=== PATIENT | male | born 1990 | race Two or more races ===

== ENCOUNTER 2024-06-10 07:55 | Emergency (ER) | payer SELFPAY ==
[~2024-06-10] VITALS: Ht 180.3 cm; Wt 109.4 kg
[2024-06-10 08:39] LABS: Basophils # (auto) 0 10 ^3/uL (0-0.2); Basophils % (auto) 0.7 % (0.0-2.0); Eosinophils # (auto) 0.2 10 ^3/uL (0-0.8); Eosinophils % (auto) 2.8 % (0.0-7.0); Hematocrit 48.5 % (41.0-53.0); Lymphocytes # (auto) 1.7 10 ^3/uL (0.4-5.4); Lymphocytes % (auto) 23.5 % (10.0-50.0); Mean Corpuscular Hemoglobin 31.6 pg (28.0-32.0); Mean Corpuscular Volume 90.1 fL (80.0-100.0); Monocytes # (auto) 0.4 10 ^3/uL (0-1.3); Monocytes % (auto) 5.3 % (0.0-12.0); Neutrophils # (auto) 4.8 10 ^3/uL (1.6-8.6); Neutrophils % (auto) 67.7 % (37.0-80.0); Nucleated Red Blood Cells % 0.1 %; Platelet Count (auto) 260 10^3/uL (140-450); Red Blood Cells 5.38 10^6/uL (4.5-5.90); Red Cell Distribution Width 13.6 % (11.8-14.3); White Blood Cell 7.1 10^3/uL (4.4-10.8)
[2024-06-10 08:48] LABS: Chloride 104 mmol/L (98-107); Potassium 4.1 mmol/L (3.5-5.1); Sodium 137 mmol/L (136-145)
[2024-06-10 08:49] LABS: Anion Gap 7 (5-15); Carbon Dioxide 26 mmol/L (20-31)
[2024-06-10 08:50] LABS: Calcium 9.5 mg/dL (8.7-10.4)
[2024-06-10 08:54] LABS: Glucose 106 mg/dL (74-106)
[2024-06-10 08:55] VITALS: BP 142/90; PULSE 85; RESP 20; TEMP 99.6; O2SAT 100
[2024-06-10 08:55] LABS: BUN/Creatinine Ratio 7.6 (10.0-20.0); Blood Urea Nitrogen 7 mg/dL (9-23)
--- NOTE | 2024-06-10 09:14 | ED.PDOC ---
GI ASSESSMENT HPI Comments A 34 YEAR OLD MALE PRESENTS TO THE ED WITH COMPLAINT OF EPIGASTRIC PAIN. PATIENT STATES HE HAS BEEN EXPERIENCING EPIGASTRIC PAIN WITH A FEW EPISODES OF NAUSEA AND VOMITING FOR THE PAST 2 DAYS. PATIENT NOTES HE HAS HAD A DECREASED APPETITE A RESULT OF HIS SYMPTOMS. PATIENT DENIES FEVER, CHILLS, SHORTNESS OF BREATH, CHEST PAIN, HEADACHE, OR OTHER COMPLAINTS. NO OTHER SYMPTOMS OR MODIFYING FACTORS AT THIS TIME. PATIENT IS ALERT, ORIENTED X 4, AND HAS STEADY GAIT. Chief Complaint: Abdominal Pain Time Seen by MD: 08:17 Reviewed Notes: Nurses Notes, Medications, Allergies Allergies: Coded Allergies: NO KNOWN ALLERGIES (Unverified , 06/10/24) Information Source: Patient Mode of Arrival: Ambulatory Timing: Days Duration: Since onset, Days Prehospital treatment: None Quality: Aching, Cramping Vomitus: Food Particles Stool: Normal Severity: Moderate Recent: None Recent Hx of: None Pain Location: Epigastric Modifying Factors: Nothing Associated sign and symptoms: Nausea, Vomiting, Abdominal Pain Past Medical History PAST MEDICAL HISTORY: Denies Surgical History: Denies all surgeries Family History Family History: Reviewed,noncontributory to illness Social History Smoker: Non-Smoker Alcohol: Denies ETOH Use Drugs: Denies Drug Use Lives In: Home Constitutional: denies: chills, diaphoresis, fatigue, fever, malaise, sweats, weakness, others EENTM: denies: blurred vision, double vision, ear bleeding, ear discharge, ear drainage, ear pain, ear ringing, eye pain, eye redness, hearing loss, mouth pain, mouth swelling, nasal discharge, nose bleeding, nose congestion, nose pain, photophobia, tearing, throat pain, throat swelling, voice changes, others Respiratory: denies: cough, hemoptysis, orthopnea, SOB at rest, shortness of breath, SOB with excertion, stridor, wheezing, others Cardiovascular: denies: chest pain, dizzy spells, diaphoresis, Dyspnea on exertion, edema, irregular heart beat, left arm pain, lightheadedness, palpitations, PND, syncope, others Gastrointestinal: reports: abdominal pain (EPIGASTRIC PAIN), nausea, vomiting; denies: abdomen distended, blood streaked bowels, constipated, diarrhea, dysphagia, difficulty swallowing, hematemesis, melena, poor appetite, poor fluid intake, rectal bleeding, rectal pain, others Genitourinary: denies: burning, dysuria, flank pain, frequency, hematuria, incontinence, penile discharge, penile sore, pain, testicle pain, testicle swelling, urgency, others Neurological: denies: dizziness, fainting, headache, left sided numbness, left sided weakness, numbness, paresthesia, pre-existing deficit, right sided numbness, right sided weakness, seizure, speech problems, tingling, tremors, weakness, others Musculoskeletal: denies: back pain, gout, joint pain, joint swelling, muscle pain, muscle stiffness, neck pain, others Integumetry: denies: bruises, change in color, change in hair/nails, dryness, laceration, lesions, lumps, rash, wounds, others Allergic/Immunocompromised: denies: Difficulty Healing, Frequent Infections, Hives, Itching, others Hematologic/Lymphatic: denies: anemia, blood clots, easy bleeding, easy bruising, swollen glands, others Endocrine: denies: excessive hunger, excessive sweating, excessive thirst, excessive urination, flushing, intolerance to cold, intolerance to heat, unexplained weight gain, unexplained weight loss, others Psychiatric: denies: anxiety, bipolar disorder, depression, hopeless, panic disorder, schizophrenia, sleepless, suicidal, others All Other Systems: Reviewed and Negative Physical Exam General Appearance: Obese HEENT: Normal ENT Inspection, PERRL/EOMI, Pharynx Normal, TMs Normal Neck: Full Range of Motion, Non-Tender, Normal, Normal Inspection Respiratory: Chest Non-Tender, Lungs Clear, No Accessory Muscle Use, No Respiratory Distress, Normal Breath Sounds Cardiovascular: No Edema, No JVD, No Murmur, No Gallop, Normal Peripheral Pulses, Regular Rate/Rhythm Breast Exam: Deferred Gastrointestinal: Epigastric, No Organomegaly, No Pulsatile Mass, Normal Bowel Sounds, Soft, Tenderness (EPIGASTRIC WITH MILD GUARDING, NO REBOUND TENDERNESS. ) Genitalia: Deferred Pelvic: Deferred Rectal: Deferred Extremities: No calf tenderness, Normal capillary refill, Normal inspection, Normal range of motion, Non-tender, No pedal edema Musculoskeletal : Apperance: Normal Neurologic: Alert, lard refiner II-XII nml as Tested, No Motor Deficits, Normal Affect, Normal Mood, No Sensory Deficits Cerebellar Function: Normal Reflexes: Normal Skin: Dry, Normal Color, Warm Peripheral Pulses: 2+ carotid (R), 2+ carotid (L) Lymphatic: No Adenopathy Was a procedure done? Was a procedure done?: No GI differential Dx Differential Diagnosis: Cholecystitis, Constipation, Gastritis/PUD, Inflammatory BD, Pancreatitis X-Ray, Labs, Meds, VS Vital Signs Date Time Temp Pulse Resp B/P (MAP) Pulse Ox O2 Delivery O2 Flow Rate FiO2 06/10/24 08:55 99.6 85 20 142/90 (107) 100 99.6 06/10/24 08:55 85 20 100 Room Air 06/10/24 08:10 99.6 85 20 142/90 (107) 100 Lab Test 06/10/24 09:50 06/10/24 08:20 Range/Units Urine Color Light-yellow Yellow Urine Clarity Clear Clear Urine pH 7.0 5.0-9.0 Urine Specific [place] 1.016 1.001-1.035 Urine Protein Negative Negative Urine Ketones Negative Negative Urine Blood Negative Negative /uL Urine Nitrite Negative Negative Urine Bilirubin Negative Negative Urine Urobilinogen Normal Negative mg/dL Urine Leukocyte Esterase Negative Negative /uL Urine RBC 2 0 - 3 /hpf Urine WBC 1 0 - 3 /hpf Urine Squamous Epithelial Cells Few <5 /hpf Urine Bacteria None seen None Seen /hpf Urine Mucus Few None Seen Urine Glucose Normal Normal mg/dL White Blood Count 7.1 4.4-10.8 10^3/uL Red Blood Count 5.38 4.5-5.90 10^6/uL Hemoglobin 17.0 13.5-17.5 g/dL Hematocrit 48.5 41.0-53.0 % Mean Corpuscular Volume 90.1 80.0-100.0 fL Mean Corpuscular Hemoglobin 31.6 28.0-32.0 pg Mean Corpuscular Hemoglobin Concent 35.0 32.0-36.0 g/dL Red Cell Distribution Width 13.6 11.8-14.3 % Platelet Count 260 140-450 10^3/uL Mean Platelet Volume 7.7 6.9-10.8 fL Neutrophils (%) (Auto) 67.7 37.0-80.0 % Lymphocytes (%) (Auto) 23.5 10.0-50.0 % Monocytes (%) (Auto) 5.3 0.0-12.0 % Eosinophils (%) (Auto) 2.8 0.0-7.0 % Basophils (%) (Auto) 0.7 0.0-2.0 % Neutrophils # (Auto) 4.8 1.6-8.6 10 ^3/uL Lymphocytes # (Auto) 1.7 0.4-5.4 10 ^3/uL Monocytes # (Auto) 0.4 0-1.3 10 ^3/uL Eosinophils # (Auto) 0.2 0-0.8 10 ^3/uL Basophils # (Auto) 0 0-0.2 10 ^3/uL Nucleated Red Blood Cells 0.1 % Sodium Level 137 136-145 mmol/L Potassium Level 4.1 3.5-5.1 mmol/L Chloride Level 104 98-107 mmol/L Carbon Dioxide Level 26 20-31 mmol/L Anion Gap 7 5-15 Blood Urea Nitrogen 7 L 9-23 mg/dL Creatinine 0.92 0.700-1.30 mg/dL Glomerular Filtration Rate Calc 111 >90 mL/min BUN/Creatinine Ratio 7.6 L 10.0-20.0 Serum Glucose 106 74-106 mg/dL Calcium Level 9.5 8.7-10.4 mg/dL Total Bilirubin 0.8 0.2-1.0 mg/dL Direct Bilirubin < 0.1 <0.3 mg/dL Aspartate Amino Transferase (AST) 16 13-40 U/L Alanine Aminotransferase (ALT) 31 7-40 U/L Alkaline Phosphatase 71 46-116 U/L Total Protein 7.3 5.7-8.2 g/dL Albumin 4.6 3.2-4.8 g/dL Lipase 33 12-53 U/L Current Medications Medications (Trade) Dose Ordered Sig/Sylvain Route Start Time Stop Time Status Last Admin Ketorolac Tromethamine (Toradol Injection) 60 mg ONCE ONCE IM 06/10/24 10:30 06/10/24 10:31 DC 06/10/24 10:39 Procedure: US GALLBLADDER 06/10/2024 09:11 AM Indication: EPIGASTRIC PAIN. Comparison: None Technique: Grayscale and color images of the right upper quadrant were obtained. FINDINGS: ASCITES: None. LIVER: Liver measures 18.8 cm craniocaudal. Liver parenchyma is homogeneous in echotexture. No focal lesion is identified. No intrahepatic ductal dilatation. Normal directional flow is seen in the portal vein. GALLBLADDER: No gallstones. No gallbladder wall edema or pericholecystic fluid. Sonographic Marrero's sign is negative. COMMON BILE DUCT: 0.4 cm in caliber, within normal limits. PANCREAS: A 2.8 x 1.8 x 1.8 cm unilocular anechoic cyst is seen between the pancreatic head and ashleigh hepatis. No pancreatic ductal dilatation noted. RIGHT KIDNEY: Normal in size, 12.3 cm in length without hydronephrosis. No focal lesions identified. AORTA, IVC: Visualized portions are unremarkable. OTHER: None. IMPRESSION: 1. No sonographic evidence for acute abnormality in the right upper quadrant. No cholelithiasis or evidence of cholecystitis. 2. A 2.8 cm unilocular simple appearing cyst between the pancreatic head and ashleigh hepatis that may represent pseudocyst, cystic pancreatic lesion or other etiologies. This should be further evaluated with abdominal CT scan or MRI utilizing a dedicated pancreatic protocol. 3. Hepatomegaly and hepatic steatosis. ATED BY: NANCY HERRING MD DICTATED DATE/TIME: 06/10/24948 SIGNED BY: NANCY HERRING MD SIGNED DATE/TIME: 06/10/24948 CC: CT ABDOMEN AND PELVIS WITHOUT CONTRAST CLINICAL HISTORY: EPIGASTRIC PAIN WITH N/V TECHNIQUE: Multidetector CT of the abdomen was performed from lung bases to pu bic symphysis. Imaging was performed without IV contrast. Axial, coronal and sagittal multiplanar reformats were obtained from the axial data set by the technologist. Radiation optimization: All CT scans at this facility use at least one of these dose optimization techniques: automated exposure control mA and/or kV adjustment per patient size (includes targeted exams where dose is matched to clinical indication) or iterative reconstruction. Radiation Dose Information: CT Dose: CTDI volume is 24.4 mGy. Dose-length product is 1220.37 mGy*cm Comparison: None FINDINGS: Evaluation of the abdominal viscera is limited without intravenous contrast. There is diffuse fatty infiltration of the liver . There is no gross suspicious appearing hepatic lesion. The gallbladder, pancreas, kidneys, adrenal glands, and spleen appear within normal limits. There is no gross evidence of abdominal lymphadenopathy. There is no free fluid or free air. The stomach grossly appears unremarkable. The small and large bowel loops demonstrate normal caliber. There are view scattered diverticula in the colon without evidence of acute diverticulitis. The abdominal aorta and IVC appear within normal limits. The bladder appears unremarkable. Pelvic organ appears unremarkable. There is no evidence of a pelvic mass or lymphadenopathy. There is no free fluid collection. Lung bases are clear. There is no acute osseous abnormality. IMPRESSION: 1. There is no acute process in the abdomen and pelvis.. 2. Hepatic steatosis. 3. Few scattered colonic diverticula. HS:Y ATED BY: DENVER KIM MD DICTATED DATE/TIME: 06/10/24 101 SIGNED BY: DENVER KIM MD SIGNED DATE/TIME: 06/10/241011 CC: X-Ray, Labs, Meds, VS Comment LABS ORDERED: CBC, CMP, LIPASE, UA REVIEWED AND INTERPRETED RESULTS: NORMAL TREATMENT: TORADOL 60 MG IM A 34 YEAR OLD MALE PRESENTED TO THE ED C/O EPIGASTRIC PAIN WITH OCCASIONAL NAUSE A AND VOMITING FOR THE PAST 2 DAYS. UPON MY PHYSICAL EXAMINATION, THE PATIENT HAD NO GUARDING OR REBOUND TENDERNESS NOTED UPON PALPATION TO THEIR ABDOMEN, AND WAS MARRERO'S SIGN NEGATIVE. MY DIFFERENTIAL DIAGNOSIS INCLUDES, GERD, GASTRITIS, BILIARY SLUDGE, CHOLELITHIASIS, CHOLECYSTITIS, PANCREATITIS, HEPATIC STEATOSIS. LABS WERE ORDERED FOR THE PATIENT AND THERE WERE NO ACUTE FINDINGS. AN ULTRASOUND OF THE PATIENT'S ABDOMEN WAS DONE WHICH REVEALED HEPATOMEGALY AND HEPATIC STEATOSIS BUT NO OTHER ACUTE FINDINGS. A CT SCAN OF THE PATIENT'S ABDOMEN AND PELVIS WAS DONE WHICH WAS NORMAL. PATIENT WAS MEDICATED HERE IN THE ED WITH TORADOL 60 MG IM. SINCE THE PATIENT'S LAB TESTS AND IMAGING TESTS ARE NORMAL I HAVE DETERMINED THE PATIENT IS OKAY TO BE DISCHARGED AT THIS TIME. PATIENT WILL BE DISCHARGED HOME AND I HAVE ADVISED THEM TO FOLLOW-UP WITH THE PCP IN 1 TO 2 DAYS AND RETURN TO THE ED FOR ANY NEW OR WORSENING SYMPTOMS. Images Reviewed?: Images reviewed and evaluated by me Time of 1ST Reevaluation: 10:51 Reevaluation 1ST: Improved Patient Education/Counseling: Diagnosis, Treatment, Need For Follow Up Family Education/Counseling: Diagnosis, Treatment, Need For Follow Up Medical Screening: No EMC Exist At This Time Departure 1 Departure Time of Disposition: 11:00 Impression: Primary Impression: Acute gastritis Qualified Codes: K29.00 - Acute gastritis without bleeding Additional Impression: Hepatic steatosis Disposition: HOME / SELF CARE / HOMELESS Condition: Stable Additional Instructions: FOLLOW-UP WITH PCP IN 1 TO 2 DAYS. TAKE MEDICATIONS PRESCRIBED. RETURN TO ED FOR ANY NEW OR WORSENING SYMPTOMS. e-Prescriptions Ondansetron Odt 4MG Tab (ZOFRAN PO) 4 Mg Tb 4 MG PO BID, #14 TAB ODT TAB-DISSOLVE IN MOUTH, THEN SWALLOW Prov: GAGANDEEP ALCARAZ 06/10/24 Pantoprazole Sodium Sesquihydr (Protonix) 40 Mg Tab 40 MG PO DAILY, #30 TAB Prov: GAGANDEEP ALCARAZ 06/10/24 Discharged With: Self Critical Care Note Critical Care Time?: No Stability Stability form required: No I personally scribed for GAGANDEEP ALCARAZ ([email or web address]) on 06/10/24 at 09:14. Electronically submitted by Bipin Aceves ([email or web address]). I personally scribed for GAGANDEEP ALCARAZ ([email or web address]) on 06/10/24 at 09:54. Electronically submitted by Bipin Aceves ([email or web address]). I personally scribed for GAGANDEEP ALCARAZ ([email or web address]) on 06/10/24 at 10:50. Electronically submitted by Bipin Aceves ([email or web address]). GAGANDEEP ALCARAZ Jun 10, 2024 09:14
[2024-06-10 09:38] LABS: Alanine Aminotransferase 31 U/L (7-40); Albumin 4.6 g/dL (3.2-4.8); Alkaline Phosphatase 71 U/L (46-116); Aspartate Aminotransferase 16 U/L (13-40); Bilirubin, Direct < 0.1 mg/dL (<0.3); Bilirubin, Total 0.8 mg/dL (0.2-1.0); Total Protein 7.3 g/dL (5.7-8.2)
--- NOTE | 2024-06-10 09:52 | DVH ---
Procedure: US GALLBLADDER 06/10/2024 09:11 AM Indication: EPIGASTRIC PAIN. Comparison: None Technique: Grayscale and color images of the right upper quadrant were obtained. FINDINGS: ASCITES: None. LIVER: Liver measures 18.8 cm craniocaudal. Liver parenchyma is homogeneous in echotexture. No focal lesion is identified. No intrahepatic ductal dilatation. Normal directional flow is seen in the port al vein. GALLBLADDER: No gallstones. No gallbladder wall edema or pericholecystic fluid. Sonographic Marrero's sign is negative. COMMON BILE DUCT: 0.4 cm in caliber, within normal limits. PANCREAS: A 2.8 x 1.8 x 1.8 cm unilocular anechoic cyst is seen between the pancreatic head and port a hepatis. No pancreatic ductal dilatation noted. RIGHT KIDNEY: Normal in size, 12.3 cm in length without hydronephrosis. No focal lesions identified. AORTA, IVC: Visualized portions are unremarkable. OTHER: None. IMPRESSION: 1. No sonographic evidence for acute abnormality in the right upper quadrant. No cholelithiasis or ev idence of cholecystitis. 2. A 2.8 cm unilocular simple appearing cyst between the pancreatic head and ashleigh hepatis that may r epresent pseudocyst, cystic pancreatic lesion or other etiologies. This should be further evaluated with abdominal CT scan or MRI utilizing a dedicated pancreatic protocol. 3. Hepatomegaly and hepatic steatosis.
--- NOTE | 2024-06-10 10:14 | DVH ---
CT ABDOMEN AND PELVIS WITHOUT CONTRAST CLINICAL HISTORY: EPIGASTRIC PAIN WITH N/V TECHNIQUE: Multidetector CT of the abdomen was performed from lung bases to pubic symphysis. Imaging was performed without IV contrast. Axial, coronal and sagittal multiplanar reformats were obtained fr om the axial data set by the technologist. Radiation optimization: All CT scans at this facility use at least one of these dose optimization delores hniques: automated exposure control mA and/or kV adjustment per patient size (includes targeted exam s where dose is matched to clinical indication) or iterative reconstruction. Radiation Dose Information: CT Dose: CTDI volume is 24.4 mGy. Dose-length product is 1220.37 mGy*cm Comparison: None FINDINGS: Evaluation of the abdominal viscera is limited without intravenous contrast. There is diffuse fatty infiltration of the liver . There is no gross suspicious appearing hepatic le desean. The gallbladder, pancreas, kidneys, adrenal glands, and spleen appear within normal limits. There is no gross evidence of abdominal lymphadenopathy. There is no free fluid or free air. The stomach grossly appears unremarkable. The small and large bowel loops demonstrate normal caliber. There are view scattered diverticula in the colon without evidence of acute diverticulitis. The abdominal aorta and IVC appear within normal limits. The bladder appears unremarkable. Pelvic organ appears unremarkable. There is no evidence of a pelvi c mass or lymphadenopathy. There is no free fluid collection. Lung bases are clear. There is no acute osseous abnormality. IMPRESSION: 1. There is no acute process in the abdomen and pelvis.. 2. Hepatic steatosis. 3. Few scattered colonic diverticula. HS:Y
[2024-06-10 10:32] LABS: Urine Bacteria None Seen /hpf (None Seen)
[2024-06-10 10:39] LABS: Urine Blood Negative /uL (Negative); Urine Clarity Clear (Clear); Urine Color Light-Yellow (Yellow); Urine Mucus FEW (None Seen); Urine Protein, UAD Negative (Negative); Urine Specific Gravity 1.016 (1.001-1.035); Urine Urobilinogen Normal (Negative); Urine WBC 1 /hpf (0 - 3)
[2024-06-10] MEDS: KETOROLAC TROMETH 60MG/2ML VIAL IM ONE (10:39)
[2024-06-10 10:45] LABS: Lipase 33 U/L (12-53)
[2024-06-10] MEDS ORDERED: ZOFR4T PO (10:52)
[2024-06-10] MEDS ORDERED: PANT40TA2 PO (10:52)
== END 2024-06-10 10:58 | disposition home or self-care (01) ==
LOC: ER 07:55
DX: K29.00 Acute gastritis without bleeding (principal); K76.0 Fatty (change of) liver, not elsewhere classified
CPT/HCPCS: 36415; 74176; 76705; 80048; 80076; 81001; 83690; 85025; 96372; 99285; J1885